=== PATIENT | male | born 1980 | race Caucasian/White ===

== ENCOUNTER 2020-01-20 15:30 | Emergency (ER) | payer BC ==
[~2020-01-20] VITALS: Ht 177.8 cm; Wt 88.6 kg
[2020-01-20 15:53] LABS: BASOPHILS # (AUTO) 0.2 X10'3 (0-0.2); BASOPHILS % (AUTO) 1.6 % (0-1); EOSINOPHILS # (AUTO) 0.5 X10'3 (0-0.9); EOSINOPHILS % (AUTO) 4.7 % (0-6); HEMATOCRIT 43.5 % (42.0-52.0); HEMOGLOBIN 14.9 g/dl (14.0-17.9); LYMPHOCYTES # (AUTO) 3.1 X10'3 (1.1-4.8); MEAN CORPUSCULAR HEMOGLOBIN 30.4 PG (27.0-31.0); MEAN CORPUSCULAR HGB CONC 34.4 g/dL (33.0-36.5); MEAN CORPUSCULAR VOLUME 88.6 FL (78-98); MEAN PLATELET VOLUME 8.1 FL (7.4-10.4); MONOCYTES # (AUTO) 0.8 X10'3 (0-0.9); MONOCYTES % (AUTO) 8.3 % (2-12); NEUTROPHILS # (AUTO) 5.4 X10'3 (1.8-7.7); NEUTROPHILS % (AUTO) 54.4 % (42-75); PLATELET COUNT 286 X10'3 (140-440); RED BLOOD COUNT 4.91 X10'6 (4.70-6.10); RED CELL DISTRIBUTION WIDTH 13.6 % (11.5-14.5); WHITE BLOOD COUNT 9.9 X10'3 (4.5-11.0)
[2020-01-20 16:08] LABS: ALANINE AMINOTRANSFERASE 33 U/L (12-78); ALBUMIN 3.8 G/DL (3.4-5.0); ALBUMIN/GLOBULIN RATIO 1.1 (1.1-1.5); ALKALINE PHOSPHATASE 82 IU/L (46-116); ANION GAP 6 (8-16); ASPARTATE AMINO TRANSFERASE 9 U/L (10-37); BILIRUBIN,TOTAL 0.3 MG/DL (0.1-1.0); BLOOD UREA NITROGEN 10 MG/DL (7-18); BUN/CREATININE RATIO 9.3 (5.4-32.0); CHLORIDE 107 MMOL/L (99-107); CREATININE 1.08 MG/DL (0.60-1.10); GLUCOSE 100 MG/DL (70-104); POTASSIUM 4.1 MMOL/L (3.5-5.1); SODIUM 140 MMOL/L (135-145); TOTAL CARBON DIOXIDE 27.1 MMOL/L (24-32); TOTAL PROTEIN 7.4 G/DL (6.4-8.2); eGFR 77 ML/MIN
[2020-01-20] MEDS ORDERED: aspirin 81mg tab.chew PO ONE (16:20)
[2020-01-20 17:05] LABS: D-DIMER 0.22 MG/L FEU (0-0.50)
[2020-01-20 19:21] VITALS: BP 128/85
== END 2020-01-20 19:39 | disposition home or self-care (01) ==
LOC: ER 15:31
DX: R07.89 Other chest pain (principal); R06.02 Shortness of breath; R42 Dizziness and giddiness; R00.2 Palpitations; Z88.0 Allergy status to penicillin
CPT/HCPCS: 36415; 71045; 80053; 83880; 84484; 85025; 85379; 93005; 99285

== ENCOUNTER 2025-03-17 12:29 | Inpatient (IN) | payer BC ==
[~2025-03-17] VITALS: Ht 172.7 cm; Wt 100.0 kg
--- NOTE | 2025-03-17 13:15 | Physician Documentation ---
History of Present Illness ~ Chief Complaint: ALOC Stated Complaint: ALOC Time Seen by MD: 12:40 OK to notify your PCP?: Yes Source: patient Mode of Arrival: Air Transport HPI A 44years old with urosepsis and ALOC in 2019 with unknown significant PMH who was transferred from the [facility] for further syncope workup. Pt seems like not having much interest in taking care of himself and mostly kept answering the most of medical history questions by replying "Just ask my " ( Salma [phone]), and " No Idea". Pt endorsed that he was told by his that he collapsed this morning which he had the similar episode in 2019 when he got urosepsis. As per [place]'s hospital record stating that his endorsed about the syncope episode last night. His Last Normal Time was around 830 last night. Denied for any fever with chills and rigors, N&V, flushing and sweating feeling, Chest pain pressure and discomfort, any aura, photosensitivity, neck stiffiness, or seizure like activity before and during the syncope. He denied for any recent head trauma or injury during his LOC. He was confused on awakening this morning noticed by his and unable to recognize his own daughter where they are residing together at home. On awakening from syncope, pt denied for any tongue bitting, urinary and bowel incontinence except for the confusion. He denied for any recent sick contact, and travelling history. 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 Medication Reconciliation Allergies: Coded Allergies: atorvastatin (Verified Allergy, Severe, 03/18/25) per patient has muscle contractions Penicillins (Unverified Allergy, Unknown, 03/17/25) Uncoded Allergies: DAIRY (Adverse Reaction, Unknown, 03/17/25) Scheduled Testosterone Cypionate (TESTOSTERONE CYPIONATE 200mg/ml 10ml vial), 1 ML IM Q7D, (Reported) Past Medical History Past Medical History: No Pertinent History Other Past Medical History: no known PMH except taking the testosterone supplement Past Surgical History: noncontributory Alcohol Use: None Drug Use: none Review of Systems All Other Systems at this time: Reviewed and Negative Physical Exam Vital Signs: Temperature: 97.6, Source: Temporal, Heart Rate: 83, Respiratory Rate: 16, BP: 141/101, Pulse Oximetry: 98, Weight: 100.000 Oxygen Flow Rate: 0 Physical Exam General: Well alert, well oriented, not confused, not agitated, not in acute distress, well cooperated during the physical. HEENT: Conjunctive are pink, sclerae clear, no icterus, pupil is equal in both sides, reactive to light, no ear discharge, no pharyngeal erythema or an edema, mouth and lips are moist. no nystagmus Neck: Supple, no JVD, no lymphadenopathy and thyromegaly. No neck stiffness Lungs:Equal air entry on both lungs, no additional sounds Heart: S1-S2 regular sinus rhythm and, regular rate, no gallops, no rubs, no murmurs Abdomen: No visible peristalsis, Bowel sounds present on auscultation, soft, nontender, no guarding, no rigidity Extremities: No obvious deformities, no pitting edema bilaterally, capillary refill intact, able to wiggle toes both sides, peripheral pulsations are intact on both sides DAG SPRAYER: No focal neurological deficits, no motor, power, and sensory weakness in all 4 extremities, could move all 4 extremities, no pronator drift, and No kernig and Barbinski signs bilaterally Musculoskeletal: No joint swelling, deformities, inflammations, and no scoliosis and back tenderness Skin: No active skin lesions and rashes Progress Results/Orders Results/Orders Vital Signs 03/17/25 03/17/25 03/17/25 03/17/25 12:29 12:33 12:45 13:05 Temp 97.6 97.6 Pulse 75 83 74 Resp 20 20 16 16 B/P (MAP) 141/10 141/101 (114) 141/101 (114) Pulse Ox 99 98 99 O2 Flow Rate 0 0 03/17/25 14:14 Pulse 74 Resp 16 B/P (MAP) 130/84 (99) Pulse Ox 99 O2 Flow Rate 0 Laboratory Tests Test 03/17/25 13:09 03/17/25 13:11 03/17/25 14:40 White Blood Count 8.4 Red Blood Count 5.14 Hemoglobin 15.3 Hematocrit 45.5 Mean Corpuscular Volume 88.5 Mean Corpuscular Hemoglobin 29.8 Mean Corpuscular Hemoglobin Concent 33.7 Red Cell Distribution Width 14.2 Platelet Count 231 Mean Platelet Volume 7.7 Neutrophils (%) (Auto) 58.7 Lymphocytes (%) (Auto) 30.9 Monocytes (%) (Auto) 6.6 Eosinophils (%) (Auto) 3.0 Basophils (%) (Auto) 0.8 Neutrophils # (Auto) 5.0 Lymphocytes # (Auto) 2.6 Monocytes # (Auto) 0.6 Eosinophils # (Auto) 0.3 Basophils # (Auto) 0.1 CBC Comment Prothrombin Time 10.9 INR International Normalized Ratio 1.1 Activated Partial Thromboplast Time 26 Coagulation Comments Sodium Level 143 Potassium Level 3.7 Chloride Level 111 H Carbon Dioxide Level 23.1 L Anion Gap 9 Blood Urea Nitrogen 19 H Creatinine 0.94 Estimated GFR/1.73 m2 88 BUN/Creatinine Ratio 20.2 H Glucose Level 123 H Hemoglobin A1c 6.7 H Lactic Acid Level 1.0 Calcium Level 8.1 L Phosphorus Level 2.5 Magnesium Level 2.1 Total Bilirubin 0.5 Aspartate Amino Transf (AST/SGOT) 12 Alanine Aminotransferase (ALT/SGPT) 33 Alkaline Phosphatase 65 Total Creatine Kinase 49 Pro-B-Type Natriuretic Peptide < 30 Total Protein 6.6 Albumin 3.4 Globulin 3.2 Albumin/Globulin Ratio 1.1 Procalcitonin < 0.05 Chemistry Comments Urine Specimen Description Non-specified Urine Color Yellow Urine Clarity Slightly cloudy Urine pH 7.5 Urine Specific [place] 1.010 Urine Protein Negative Urine Glucose (UA) Negative Urine Ketones Negative Urine Occult Blood Moderate H Urine Nitrite Negative Urine Bilirubin Negative Urine Urobilinogen 0.2 Urine Leukocyte Esterase Small H Urine RBC 3-10 Urine WBC 10-20 H Urine Squamous Epithelial Cells None seen Urine Bacteria 1+ Urine Culture Indicated Indicated Volume Urine Centrifuged 10 ml Urine Comment Ionized Calcium (Measured) 1.26 Medical Decision Making Additional information obtaine: family Findings A 44years old with urosepsis and ALOC in 2019 with unknown significant PMH who was transferred from the [facility] for further syncope workup. # Acute Encephalopathy -possibly from the Metabolic (Upper UTI/ complicated UTI) Vs toxic Vs Infectious Encephalopathy -To rule out the CVA or TIA with the extensive Syncope workup -vitals were stable except for the slightly high BP with no Fever -Ordered Basic labs and UA with C&S (prior [facility] showed Michelle Esterase + and 10-15 WBCs in UA) -CT abd imaging was done at the [facility] already. 1429: pt UA showed Small + Michelle Est, with 1+ Bact and large WBC and occult blood, Normal WBC and normal Procalcitonin, We started IV Ceftriaxone 2G one time in ER for the possible Male complicated UTI, The hospitalist team was paged to continue the further management including MRI and other Syncope workup. The hospitalist team ( Dr. Bains ) willingly accepted the patient to continue further care. Differential Dx:Considerations: Include: dehydration, encephalopathy, TIA, vasovagal Departure Time of Disposition: 14:31 Disposition: 09 ADMITTED INPATIENT Admitted to Inpatient Unit: to hospitalist Impression: Primary Impression: Altered mental status Additional Impression: Syncope and collapse Referrals: NO PRIMARY CARE PROVIDER (PCP) Additional Comment Seen with PA/CLOTH GRADER SUPERVISOR The patient presented with weakness and confusion and was transferred to our facility, the patient had no focal neurologic deficits. The patient was seen with the resident physician. I have reviewed the residence note and agree with the note and the assessment plan as written. I Have supervised all aspects of the residents care. I Independently examined the patient. The patient's prior hospitalizations were reviewed. The patients CT Imaging was reviewed. The patients pulse oximetry was interpreted as normal. And the patient's quality assurance monitor chassis was interpreted as a sinus rhythm. The patient will be admitted Signature Scribe Signature: No scribe Attestation: Resident MD attestation: Patient was seen, examined and discussed with ER attending MD, Dr. Regina COE MD Internal Medicine Resident, PGY3 [facility] The patient presented with weakness and confusion and was transferred to our facility, the patient had no focal neurologic deficits. The patient was seen with the resident physician. I have reviewed the residence note and agree with the note and the assessment plan as written. I Have supervised all aspects of the residents care. I Independently examined the patient. The patient's prior hospitalizations were reviewed. The patients CT Imaging was reviewed. The patients pulse oximetry was interpreted as normal. And the patient's quality assurance monitor chassis was interpreted as a sinus rhythm. The patient will be admitted MARIA LUZ COE RES Mar 17, 2025 13:15 APRIL AGUILAR MD Mar 19, 2025 09:18
[2025-03-17 13:21] LABS: MEAN PLATELET VOLUME 7.7 FL (7.4-10.4); RED CELL DISTRIBUTION WIDTH 14.2 % (11.5-14.5)
[2025-03-17 13:35] LABS: CREATININE 0.94 MG/DL (0.60-1.10); TOTAL CARBON DIOXIDE 23.1 MMOL/L (24-32); eCRCL 99 ML/MIN; eGFR 88 ML/MIN
[2025-03-17 13:39] LABS: LEUKOCYTE ESTERASE ,URINE SMALL (Neg); NITRITES, URINE NEGATIVE (Neg); OCCULT BLOOD,URINE MODERATE (Neg); UA COLLECTION TYPE NON-SPECIFIED
[2025-03-17 13:51] LABS: SQUAMOUS EPITHELIAL CELL,UR NONE SEEN /LPF (FEW)
[2025-03-17] MEDS: CefTRIAXone 2gm/D5W 50ml BAG 50 ML IV ONE (14:42)
[2025-03-17] MEDS ORDERED: ondansetron/PF 4mg/2ml inj IV PRN (15:35)
[2025-03-17] MEDS ORDERED: magnesium hydroxide 30ml (MOM) UD suspension PO PRN (15:35)
[2025-03-17] MEDS ORDERED: magnesium sulf-water 2g/50mL 50 ML IV PRN (15:35)
[2025-03-17] MEDS ORDERED: potassium Cl 20 mEq SR tablet PO PRN ×2 (15:35)
[2025-03-17] MEDS ORDERED: magnesium Cl slow-release 64mg tablet PO PRN (15:35)
[2025-03-17] MEDS ORDERED: potassium Cl 40MEQ/1/2NS 520ml 520 ML IV PRN (15:35)
[2025-03-17] MEDS ORDERED: magnesium sulf-water 4G/100mL 100 ML IV PRN (15:35)
[2025-03-17] MEDS ORDERED: mag hydrox/Alum hydrox/simeth 30ml oral suspension PO PRN (15:35)
[2025-03-17] MEDS: normal saline 1000ml 1,000 ML IV ONE (15:43)
[2025-03-17] MEDS: normal saline 1000ml 1,000 ML IV SCH (15:43)
[2025-03-17] MEDS ORDERED: TEST200V33 IM (15:52)
[2025-03-17 16:05] LABS: APTT 26 SECONDS (22-32); INR 1.1 INR
[2025-03-17 16:13] LABS: PHOSPHORUS 2.5 MG/DL (2.3-4.5); PRO BRAIN NATRIURETIC PEPTIDE < 30 PG/ML (0-125)
--- NOTE | 2025-03-17 19:03 | HISTORY AND PHYSICAL-Residence ---
History & Physical Providers to CC Resident Creating Document: LEAH BAINS, RES ~ History of Present Illness Primary Medical Doctor: Dr. Samuel Georges MD, [facility] regular health care clinic Reason for Admit\Complaint: Altered level of consciousness History of Present Illness Patient is a 44 years old male with history of Klinefelter's syndrome was transferred from [facility] for evaluation of altered level of consciousness. Patient's states that he was doing well and went to sleep yesterday night, Upon waking up this morning, patient was slightly confused and was unable to recognize his daughter. Patient tried to dress himself and had a subsequent mechanical fall, he did not strike his head on the floor or did not lose the consciousness. Later Patient's went to work, after sometime patient called his stating that he did not feel well and he was unsure whether he should go to work or not. Patient was not sure if he had heart attack or it was just his anxiety. He denied for any tongue biting, urinary and bowel incontinence. He denied for any recent sick contact, and travelling history. Denied for any fever with chills and rigors, N&V, flushing and sweating feeling, Chest pain/pressure and discomfort, any aura, photosensitivity, neck stiffness, or seizure like activity. Patient's also reported that patient had similar kind of episode in 2019 which was reported to be due to urosepsis. Patient takes testosterone injections weekly for the klinefelter's syndrome. ER course in the [facility]: Patient went to the ED at [facility] with chief complaints of altered level of consciousness and subsequent paralysis in both of his legs. He was confused and unable to answer some questions but he was able to follow commands. He was unable to lift his legs off the bed. He had in fact walked into the ER although unsteady on feet fully supporting his weight. Blood workup was unremarkable, CBC without leukocytosis or anemia. Metabolic panel was grossly benign except blood sugar was mildly elevated at 150. His procalcitonin was mildly elevated and lactic acid, TSH, troponin were all normal. His urine was contaminated but did not show any compelling signs of infection. His toxicology screen was negative. CT scan of the head was normal. CT angio head and neck was normal. Chest x-ray was normal. , the teleneurologist was consulted and she stated that this did not appear as typical stroke and he showed no signs of large vessel occlusion. She did recommend completion of encephalopathy workup with consideration for MRI and possible EEG. Patient had sudden recovery of his mentation and he was able to converse normally. He showed no signs of neurological deficits in the upper extremities and he was able to move his feet against resistance. Patient was transferred here for MRI and EEG for further workup. Allergies: Coded Allergies: Penicillins (Unverified Allergy, Unknown, 03/17/25) Uncoded Allergies: DAIRY (Adverse Reaction, Unknown, 03/17/25) Home Medications Home Medications Active Reported TESTOSTERONE CYPIONATE 200mg/ml 10ml vial (Testosterone Cypionate) 200 Mg/Ml Vial 1 Ml IM Q7D Past Medical History Past Medical History Klinefelter syndrome Tobacco use Chronic right shoulder pain History of urosepsis in 2019 Past Surgical History Surgical History Comment No surgical history Past Social History Social History Comment Smoking: Chews tobacco Alcohol: Drinks beer 1 or 2 times in a month Denies any recreational drug use Patient lives with family 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 Gastrointestinal:No Abdominal pain, vomiting,nausea and melena. Normal appetite. No constipation,diarrhea, hematemesis, Musculoskeletal: No swelling or edema of extremities. Integumentary: No change in skin, hair, nails. No swelling, bruising, abrasions Neurologic: No weakness,No headache, neck pain, numbness or tingling of the extremities, Psychiatric: No delusions, depression, loss of interest in normal activity or change in sleep pattern, hallucinations, suicidal ideations Endocrine: No fatigue, no weakness. polydipsia, polyuria, change in appetite, heat or cold intolerance, sweating, dry skin Hematological: No bleeding, petechiae, bruising Allergies: No asthma or urticaria Exam Vitals: Vital Signs Date Time Temp Pulse Resp B/P (MAP) Pulse Ox O2 Delivery O2 Flow Rate FiO2 03/17/25 18:05 84 16 141/94 (110) 94 0 03/17/25 12:45 97.6 General: Awake , alert and oriented to time,place, person,not in distress HEENT: Atraumatic, normocephalic, PERRLA, EOMI, anicteric sclera ; pink conjunctiva, dry mucos membranes Neck: Trachea midline. Supple, normal range of motion, no JVD, no lymphadenopathy Chest and Respiratory: Equal breath sounds bilaterally, no tachypnea, wheezing, ronchi,rubs .Chest wall is symmetric and without deformity. Cardiac: S1, S2 heard,Regular rate and rhythm, no murmurs ,no gallops, no rubs. Abdomen: Soft, No tenderness, No guarding or rigidity, Kearney's sign negative. normal bowel sounds x4 quadrant, no hepatosplenomegaly MSK: Range of motion of all extremities are normal. There is no joint pain or joint swelling or joint erythema. There is no muscle pain or tenderness or swelling. Extremities: warm, well-perfused, No cyanosis, clubbing, 2+ pulses felt, WRINKLE CHASER < 2 sec Neurological: Mental status exam: alert and consciousness, orientation, memory, speech - Cranial nerve test: Cranial nerves II-XII intact. - Motor system: Normal Nutrition, normal tone, Power 5/5, no involuntary movements - Sensory system: Intact - Reflex testing: Biceps, triceps and knee reflexes 2+ - Cerebellar: Normal Skin: Warm and dry Psychiatry: Affect and mood are normal Diagnostic Data Last Recorded Lab Results: 03/17/25 1309 03/17/25 1309 Diagnostic Data: Laboratory Tests Test 03/17/25 13:09 Prothrombin Time 10.9 SECONDS (9.0-12.0) INR International Normalized Ratio 1.1 INR Activated Partial Thromboplast Time 26 SECONDS (22-32) Coagulation Comments Advance Care Planning Advanced Care plannin - 30 Minutes (I spent a total of 17 minutes on reviewing various resuscitative measures/ACP with the patient at the time of admission. The patient has decided on full code status) Additional Plan Acute metabolic encephalopathy,resolving2/2 UTI UA positive for esterase, WBC and bacteria No leukocytosis, Lactate and procalcitonin are in normal limits Follow up on urine and blood cultures IV Rocephin 1 g daily Dehydration Pt has dry mucous membranes, WRINKLE CHASER < 2 sec IV NS 1L bolus was given and started on 100 ml IV NS Ordered orthostatic vitals Monitor BMP levels Possible CVA in evaluation vs TIA vs seizure disorder Imaging at [facility]: -CT head- no intracranial bleed -CTA angio shows no acute or significant vascular process In [facility]: MRI head shows no evidence of an acute infarction. EKG shows normal sinus rhythm and rate, normal axis with no acute ischemic changes Follow up on echocardiogram Follow up on EEG Teleneurology consult if necessary Telemetry monitoring Follow up on Urine Tox Klinefelter's syndrome Patient takes testosterone injections weekly. Patient takes Tylenol for occasional headaches Code status: Full code DVT prophylaxis : Lovenox Nutrition: Regular diet Physical therapy: ordered Line/tube: PIV Analgesia/sedation: Tylenol PRN Disposition: Continue telemetry monitoring and follow up with the MRI. Resident attestation The above note has been reviewed and supervised by a senior resident PGY2/PGY3 Patient was seen, examined and discussed with the attending physician, Dr. JUSTIN Bains MD Internal Medicine Resident, PGY 1 Date of Service: Mar 17, 2025 Billing Provider: MIMI ANDERSON MD, SUNIL KUMAR, RES Mar 17, 2025 19:03
[2025-03-17] MEDS: docusate sod 100mg capsule PO SCH (19:39)
[2025-03-17] MEDS: K and/or MAG REPLACEMENT MC SCH (19:48)
[2025-03-17 20:00] VITALS: BP_SYST 138; BP_SYST 145; BP_SYST 154; BP_DIAS 93; BP_DIAS 97; PULSE 122; PULSE 131; PULSE 70
[2025-03-17 21:12] VITALS: BP 147/89; PULSE 68; RESP 16; TEMP 97.9; O2SAT 98
--- NOTE | 2025-03-17 21:37 | RADIOLOGY REPORT ---
EXAM: MR MRI HEAD INDICATION: CVA/occlusion TECHNIQUE: Multiplanar, multisequence imaging of the brain without contrast. COMPARISON: None FINDINGS: [PARENCHYMA]: No acute infarct or hemorrhage. No mass effect or herniation. No abnormal susceptibility weighted artifact. [VENTRICLES]: No hydrocephalus. [EXTRA-AXIAL SPACES]: No extra-axial fluid collections. [FLOW VOIDS]: The flow voids are intact. [EXTRA-CRANIAL STRUCTURES]: The bony structures are intact. Visualized portions of the paranasal sinuses and mastoid air cells are essentially clear. IMPRESSION: 1. No MR evidence of an acute infarction.
[2025-03-17] MEDS: enoxaparin 40mg/0.4ml syringe SQ SCH (21:40)
[2025-03-18 02:00] VITALS: BP 129/75; PULSE 80; RESP 16; TEMP 97.9; O2SAT 98
[2025-03-18 06:20] LABS: MEAN PLATELET VOLUME 8.0 FL (7.4-10.4); RED CELL DISTRIBUTION WIDTH 14.0 % (11.5-14.5)
[2025-03-18 06:53] LABS: CHOL/HDL RATIO 3.8 (0.00-4.99); CREATININE 0.98 MG/DL (0.60-1.10); LDL CHOLESTEROL 94 MG/DL (50-100); TOTAL CARBON DIOXIDE 25.3 MMOL/L (24-32); eCRCL 95 ML/MIN; eGFR 84 ML/MIN
[2025-03-18 08:00] VITALS: BP_SYST 125; BP_SYST 131; BP_SYST 135; BP_SYST 140; BP_DIAS 82; BP_DIAS 84; BP_DIAS 87; BP_DIAS 99; PULSE 65; PULSE 70; PULSE 87; PULSE 91; RESP 14; TEMP 98.6; O2SAT 99
[2025-03-18] MEDS: CefTRIAXone/D5W-Rocephin 1gm 50 ML IV SCH (08:31)
[2025-03-18] MEDS: nicotine 21mg patch - 24 hr TD SCH (10:00)
[2025-03-18] MEDS ORDERED: glucagon, human recombinant 1mg kit SUBCUT PRN ×2 (11:00→11:10)
[2025-03-18] MEDS ORDERED: dextrose 50%-water 50ml dispensing syringe IV PRN ×4 (11:00→11:10)
[2025-03-18] MEDS ORDERED: DEXTROSE 15 GM of carb/4 tabs (each vial/BOTTLE has 4 tablets) PO PRN ×4 (11:00→11:10)
[2025-03-18 11:05] LABS: LEUKOCYTE ESTERASE ,URINE TRACE (Neg); NITRITES, URINE NEGATIVE (Neg); OCCULT BLOOD,URINE TRACE-INTACT (Neg)
[2025-03-18] MEDS ORDERED: aspirin 81mg, enteric-coated 1 TAB TABLET.DR PO SCH (11:10)
[2025-03-18 11:19] LABS: UA COLLECTION TYPE NON-SPECIFIED; URINE AMPHETAMINE SCREEN NEGATIVE (Neg); URINE BARBITUATE SCREEN NEGATIVE (Neg); URINE BENZODIAZEPINES SCREEN NEGATIVE (Neg); URINE CANNABINOID SCREEN NEGATIVE (Neg); URINE COCAINE SCREEN NEGATIVE (Neg); URINE METHADONE SCREEN NEGATIVE (Neg); URINE OPIATE SCREEN NEGATIVE (Neg); URINE PHENCYCLIDINE SCREEN NEGATIVE (Neg)
[2025-03-18 11:20] LABS: AMORPHOUS PHOSPHATES 2+; SQUAMOUS EPITHELIAL CELL,UR FEW /LPF (FEW)
[2025-03-18] MEDS: INSULIN LISPRO 100 UNIT/ML INSULN.PEN MULTI-DOSE SQ SCH ×2 (12:00)
[2025-03-18] MEDS: lactobacillus rhamnosus 10,000 MMU CELLS/CAPSULE PO SCH (13:00)
--- NOTE | 2025-03-18 13:15 | [facility] CONSULT REPORT ---
[facility] Procedure Note [facility] Procedure Note Consult [facility] Note # Demographics Consult Type: General Neurology Patient Location: Inpatient First Name: REAGAN Last Name: NENA Gilbert Date of : 1980 Age: 44 Gender: Male Facility: [facility] Time of Initial Page (): 03/18/2025 12:43 First Contact with Site (): 03/18/2025 12:44 # HPI History: Patient is a 44 years old male with history of Klinefelter's syndrome was transferred from [facility] for evaluation of altered level of consciousness. Patient's states that he was doing well and went to sleep yesterday night, Upon waking up this morning, patient was slightly confused and was unable to recognize his daughter. Patient tried to dress himself and had a subsequent mechanical fall, he did not strike his head on the floor or did not lose the consciousness. Later Patient's went to work, after sometime patient called his stating that he did not feel well and he was unsure whether he should go to work or not. Denied for any fever with chills and rigors, N&V, flushing and sweating feeling, Chest pain/pressure and discomfort, any aura, photosensitivity, neck stiffness, or seizure like activity. Patient's also reported that patient had similar kind of episode in 2019 which was reported to be due to urosepsis. Patient takes testosterone injections weekly for the klinefelter's syndrome. CT scan of the head was normal. CT angio head and neck was normal. Chest x-ray was normal. , the teleneurologist was consulted and she stated that this did not appear as typical stroke and he showed no signs of large vessel occlusion. She did recommend completion of encephalopathy workup with consideration for MRI and possible EEG. Patient had sudden recovery of his mentation and he was able to converse normally. He showed no signs of neurological deficits in the upper extremities and he was able to move his feet against resistance. Patient was transferred here for MRI and EEG for further workup. Imaging at [facility]: -CT head- no intracranial bleed -CTA angio shows no acute or significant vascular process In [facility]: MRI head shows no evidence of an acute infarction. EKG shows normal sinus rhythm and rate, normal axis with no acute ischemic changes. Assessment: Possible TIA Appreciate your recommendations on this patient. we started the patient on aspirin 81 mg and rosuvastatin . # Assessment Impression: - Altered Mental Status EEG pending for encephalopathy workup. No stroke syndrome was reported. Imaging has been reassuring. Toxometabolic workup recommended. # Plan Labs: - Ammonia - B12 - thiamine - TSH - urine drug screen - ua Diagnostic Test: - EEG Other: - If patient has any neurological deterioration please call me back immediately - I have discussed my recommendations with the referring provider # Logistics Attestation of consult completion: The patient is located at: [facility]. I performed this phone consultation from my offsite office Total time spent in telemedicine encounter: I spent 5 minutes in reviewing clinical data and/or imaging, obtaining history, communicating with the onsite care team, and in preparation of this report. # Demographics First Name: REAGAN Last Name: NENA Vladimir Facility: [facility] Electronically signed at 03/18/2025 13:15 ([place] Time) by MD NISHI Kolb ZACHARY I MD Mar 18, 2025 13:15
--- NOTE | 2025-03-18 17:19 | CARDIOLOGY REPORT ---
APPROVED REPORT EXAM: Comprehensive 2D, Doppler, and color-flow Echocardiogram. Patient Location: ER 6 Blood Pressure: 141 / 94 mmHg Heart Rate: 73 bpm Rhythm: SINUS Indications ARRHYTHMIA SYNCOPAL EPISODE [place]: NONE Previous echo: NONE 2D Dimensions RVDd 3.5 cm LVOT Diameter 2.06 (1.8-2.4cm) CO 3.6 L/min M-Mode Dimensions Left Atrium(MM) 4.08 (2.5-4.0cm) IVSd 0.96 (0.7-1.1cm) LVDd 4.08 (4.0-5.6cm) Aortic Root 3.05 (2.2-3.7cm) PWd 1.00 (0.7-1.1cm) Aortic Cusp Exc 2.14 (1.5-2.0cm) IVSs 1.37 cm MV EPSS 0.5 (<0.5cm) LVDs 2.64 (2.0-3.8cm) FS (%) 35 % PWs 1.48 cm ESV(Teich) 25.6 ml LVEF(%) 65 (>50%) Aortic Valve AoV Peak Ham. 149.8 cm/s AoV VTI 28.6 cm AO Peak GR. 9.0 mmHg AO Mean GR. 5 mmHg LVOT VTI 20.51 cm LVOT Peak Ham. 117.8 cm/s TAINA(VTI)/BSA 2.39 cm2/m2 TAINA (VTI) 2.39 cm2 AV DI 0.72 % Mitral Valve MV E Velocity 99.6 cm/s MV Peak Gr. 3 mmHg MV DECEL TIME 212 ms MV A Velocity 95.0 cm/s MV PHT 48 ms E/A Ratio 1.0 MVA (PHT) 4.58 cm2 MV VMax 91.2 cm/s Tricuspid Valve TR P. Velocity 273 cm/s RAP ESTIMATE 10 mmHg TR Peak Gr. 30 mmHg RVSP 40 mmHg Pulmonary Vein S1 Velocity 52.3 cm/s D2 Velocity 44.1 cm/s PVa Velocity 22.8 cm/s PVa Duration 152 msec LEFT VENTRICLE Normal LV size and wall thickness. Overall systolic function is normal. LVEF is 60-65%. RIGHT VENTRICLE RV is mildly increased in size with normal function. ( best visualized apically. Elevated right heart pressures with an RVSP of 40 mmHg. ATRIA The left atrium size is normal. AORTIC VALVE Trileaflet AV appears normal without stenosis or insufficiency. MITRAL VALVE Normal MV annular calcification without stenosis. Trivial regurgitation. TRICUSPID VALVE TV appears structurally normal with trace regurgitation. PULMONIC VALVE Normal PV without stenosis, physiologic insufficiency. GREAT VESSELS Aortic root is normal in size. Normal appearing arch with normal flow velocities. Ascending aorta is normal in size. PERICARDIUM Normal pericardium. No effusion. Other Information Study Quality: Adequate Conclusion Normal LV size and wall thickness. Overall systolic function is normal. LVEF is 60-65%. RV is mildly increased in size with normal function. ( best visualized apically. Elevated right heart pressures with an RVSP of 40 mmHg. The left atrium size is normal. Trileaflet AV appears normal without stenosis or insufficiency. Normal MV annular calcification without stenosis. Trivial regurgitation. TV appears structurally normal with trace regurgitation. Normal pericardium. No effusion.
[2025-03-18 18:30] VITALS: BP 140/89; PULSE 69; RESP 18; TEMP 98.2; O2SAT 99
[2025-03-18] MEDS: insulin glargine (Lantus) pen - multi-dose SQ SCH (19:20)
--- NOTE | 2025-03-18 19:47 | PROGRESS NOTE- Residence ---
Progress Note - Resident Providers to CC Resident Creating Document: LEAH NAVARRO, RES ~ Ramsay-Non Protocol Ramsay Indications Met/Not Met: F/C Indications Not Met Antibiotic Timeout Antibiotic Ordered?: Yes Subjective Patient was seen and examined at bedside. Patient denies any fever, chills, nausea, vomiting, burning sensation in urine, urgency and frequency. Patient denies any weakness/ tingling or numbness sensation in upper and lower extremities. Patient denies any other concerns or complaints at the moment. Objective Vital Signs Date Time Temp Pulse Resp B/P (MAP) Pulse Ox O2 Delivery O2 Flow Rate FiO2 03/18/25 08:00 Room Air 0.0 03/18/25 08:00 65 131/82 (98) 87 140/84 (102) 91 135/99 (111) 03/18/25 08:00 98.6 14 99 Result Diagram: 03/18/25 0545 03/18/25 0545 Awake , alert and oriented to time,place, person,not in distress HEENT: Atraumatic, normocephalic, PERRLA, EOMI, anicteric sclera ; pink conjunctiva, moist mucos membranes Neck: Trachea midline. Supple, normal range of motion, no JVD, no lymphadenopathy Chest and Respiratory: Equal breath sounds bilaterally, no tachypnea, wheezing, ronchi,rubs .Chest wall is symmetric and without deformity. Cardiac: S1, S2 heard,Regular rate and rhythm, no murmurs ,no gallops, no rubs. Abdomen: Soft, No tenderness, No guarding or rigidity, Kearney's sign negative. normal bowel sounds x4 quadrant, no hepatosplenomegaly MSK: Range of motion of all extremities are normal. There is no joint pain or joint swelling or joint erythema. There is no muscle pain or tenderness or swelling. Extremities: warm, well-perfused, No cyanosis, clubbing, 2+ pulses felt Neurological: Mental status exam: alert and consciousness, orientation, memory, speech - Cranial nerve test: Cranial nerves II-XII intact. - Motor system: Normal Nutrition, normal tone, Power 5/5, no involuntary movements - Sensory system: Intact - Reflex testing: Biceps, triceps and knee reflexes 2+ - Cerebellar: Normal Skin: Warm and dry Psychiatry: Affect and mood are normal Coagulation Studies Laboratory Tests Test 03/17/25 13:09 Prothrombin Time 10.9 SECONDS (9.0-12.0) INR International Normalized Ratio 1.1 INR Activated Partial Thromboplast Time 26 SECONDS (22-32) Coagulation Comments Plan Plan Acute metabolic encephalopathy,resolving 2/2 UTI UA positive for esterase, WBC and bacteria No leukocytosis, Lactate and procalcitonin are in normal limits Preliminary urine culture shows no growth IV Rocephin 1 g, day 2 Dehydration, resolved Pt has dry mucous membranes, TE[employer] < 2 sec IV NS 1L bolus was given in the ER orthostatic vitals are negative Discontinued IV fluids Monitor BMP levels Possible TIA Telemetry shows normal sinus rhythm Imaging at [facility]: -CT head- no intracranial bleed -CTA angio shows no acute or significant vascular process In [facility]: MRI head shows no evidence of an acute infarction. EKG shows normal sinus rhythm and rate, normal axis with no acute ischemic changes echocardiogram shows EF of 65% the no wall motion abnormalities Urine toxicology is negative TSH is 3.24 TeleNeurology recommended ammonia, B12, thiamine,EEG EEG pending Teleneurology consulted (did not mention anything about DAPT in notes, I spoke to the teleneurology on phone, advised no DAPT treatment on this patient verbally on phone ) Newly diagnosed type 2 diabetes HbA1c is 6.7 Started on hyperglycemia/hypoglycemia protocol Patient refused Accu-Cheks and low-dose insulin protocol. Risks and complications of diabetes/hyperglycemia was explained to the patient. Patient LDL is 95 and refused statin medication. Risks and complications was explained to the patient. Klinefelter's syndrome Patient takes testosterone injections weekly. Patient takes Tylenol for occasional headaches Code status: Full code DVT prophylaxis : Lovenox Nutrition: Regular diet Physical therapy: Yes Line/tube: PIV Analgesia/sedation: Tylenol PRN Disposition: Continue telemetry monitoring and follow up on EEG . Date of Service: Mar 18, 2025 Billing Provider: MIMI ANDERSON MD, SUNIL KUMAR, RES Mar 18, 2025 19:47
[2025-03-18 20:00] VITALS: BP_SYST 123; BP_SYST 124; BP_SYST 136; BP_DIAS 80; BP_DIAS 85; PULSE 74; PULSE 76; PULSE 83
--- NOTE | 2025-03-18 21:53 | [facility] CONSULT REPORT ---
[facility] Procedure Note [facility] Procedure Note Consult [facility] Note # Demographics Type of EEG Read: - Routine EEG - video Patient Location: Inpatient First Name: Joey Last Name: Silvino Date of : 1980 Age: 44 Gender: Male Facility: [facility] Time of Initial Page (): 03/18/2025 15:12 First Contact with Site (): 03/18/2025 15:13 # EEG Interpretation Start Time of EEG Read (): 03/18/2025 15:27 Stop Time of EEG Read (): 03/18/2025 15:59 Duration: 0h 32m Technical Details: - The EEG electrodes were placed using the standard International 10-20 system of electrode placement. Video and an accessory EKG lead were used during the course of this study. - This study was recorded using the [employer] EEG software Indication: - altered mental status - syncope - abnormal movements # Description Phases Captured: - awake - drowsy - sleep Predominant Frequencies: During wakefulness, the background activity demonstrates a well-formed, symmetric posterior dominant rhythm (PDR) in the alpha frequency range (typically 810 Hz), maximal over the occipital regions, with appropriate attenuation upon eye opening and reappearance with eye closure. The anterior-posterior gradient is preserved, and no abnormal asymmetries or focal slowing are identified. During drowsiness (Stage I sleep), there is a gradual attenuation of the alpha rhythm, replaced by low-amplitude mixed-sofia quency theta activity, along with the appearance of vertex sharp transients and slow eye movements. Stage II sleep was not captured. The background remains symmetric and reactive throughout the recording, with no focal abnormalities or generalized slowing noted during any state. Amplitude: normal Reactivity: yes Variability: yes Continuity: continuous EKG: NSR # Abnormalities Epileptiform Abnormalities: - NOT present Seizure: - NOT present Artifact: muscle and movement # Impression Impression: normal # Clinical Correlation Clinical Correlation: A normal EEG does not exclude nor support the diagnosis of epilepsy. Additional Comments: Clinical correlation is recommended. # Logistics Telemedicine: remote EEG review: EEG reviewed remotely # Demographics First Name: Joey Last Name: Silvino Facility: [facility] Neuro Consult Order placed for: Yes MANUEL CASTANEDA MD Mar 18, 2025 21:53
[2025-03-18 22:00] VITALS: BP 147/86; PULSE 76; RESP 13; TEMP 97.6; O2SAT 98
[2025-03-19 05:58] LABS: MEAN PLATELET VOLUME 7.6 FL (7.4-10.4); RED CELL DISTRIBUTION WIDTH 13.9 % (11.5-14.5)
[2025-03-19 06:00] VITALS: BP 135/88; PULSE 76; RESP 12; TEMP 97.8; O2SAT 99
[2025-03-19 06:11] LABS: CREATININE 1.03 MG/DL (0.60-1.10); TOTAL CARBON DIOXIDE 28.7 MMOL/L (24-32); eCRCL 90 ML/MIN; eGFR 79 ML/MIN
[2025-03-19 08:00] VITALS: BP 135/88; PULSE 76; RESP 12; TEMP 97.8; O2SAT 99
[2025-03-19 10:00] VITALS: BP 124/87; PULSE 68; RESP 16; TEMP 98.2; O2SAT 99
[2025-03-19] MEDS ORDERED: CEFD300C3 PO (10:37)
--- NOTE | 2025-03-19 11:14 | DISCHARGE SUMMARY-Residence ---
Discharge Summary Providers to CC Resident Creating Document: LEAH NAVAROR EMMA, RES ~ Discharge Summary Admission Diagnosis: Syncope Hospital Course DATE OF ADMISSION: 03/17/25 DATE OF DISCHARGE: 03/19/25 Discharge Diagnosis\Comment: Acute metabolic encephalopathy,resolved UTI Newly diagnosed type 2 diabetes Dehydration TIA, CVA, Seizure disorder ruled out Klinefelter's syndrome Operations\Procedures: None Consultants: Tele neurology Complications: None Condition on DC: Stable New Medications: Cefdinir* (Cefdinir*) 300 Mg Capsule 1 CAP PO Q12H for 4 Days, #8 CAP Continued Medications: Testosterone Cypionate (TESTOSTERONE CYPIONATE 200mg/ml 10ml vial) 200 Mg/Ml Vial 1 ML IM Q7D Discharge Summary: History of Present Illness : Patient is a 44 years old male with history of Klinefelter's syndrome was transferred from [facility] for evaluation of altered level of consciousness. Patient's states that he was doing well and went to sleep yesterday night, Upon waking up this morning, patient was slightly confused and was unable to recognize his daughter. Patient tried to dress himself and had a subsequent mechanical fall, he did not strike his head on the floor or did not lose the consciousness. Later Patient's went to work, after sometime patient called his stating that he did not feel well and he was unsure whether he should go to work or not. Patient was not sure if he had heart attack or it was just his anxiety. He denied for any tongue biting, urinary and bowel incontinence. He denied for any recent sick contact, and travelling history. Denied for any fever with chills and rigors, N&V, flushing and sweating feeling, Chest pain/pressure and discomfort, any aura, photosensitivity, neck stiffness, or seizure like activity.Patient's also reported that patient had similar kind of episode in 2019 which was reported to be due to urosepsis. Patient takes testosterone injections weekly for the klinefelter's syndrome. ER course in the [facility]: Patient went to the ED at [place] with chief complaints of altered level of consciousness and subsequent paralysis in both of his legs. He was confused and unable to answer some questions but he was able to follow commands. He was unable to lift his legs off the bed. He had in fact walked into the ER although unsteady on feet fully supporting his weight. Blood workup was unremarkable, CBC without leukocytosis or anemia. Metabolic panel was grossly benign except blood sugar was mildly elevated at 150. His procalcitonin was mildly elevated and lactic acid, TSH, troponin were all normal. His urine was contaminated but did not show any compelling signs of infection. His toxicology screen was negative. CT scan of the head was normal. CT angio head and neck was normal. Chest x-ray was normal. , the teleneurologist was consulted and she stated that this did not appear as typical stroke and he showed no signs of large vessel occlusion. She did recommend completion of encephalopathy workup with consideration for MRI and possible EEG. Patient had sudden recovery of his mentation and he was able to converse normally. He showed no signs of neurological deficits in the upper extremities and he was able to move his feet against resistance. Patient was transferred here for MRI and EEG for further workup. Course in the Hospital: Patient was admitted for altered level of consciousness evaluation. Urinalysis is positive for UTI and urine cultures are negative. Patient was treated with IV Rocephin and hydration with oral and IV fluids. Patient was evaluated for possible TIA versus seizure disorder. CTA head, CTA angio head and neck, MRI, EEG, EKG, urine toxicology, ammonia level were normal. Tele neurology was consulted and ruled out TIA and seizure disorder. Patient was diagnosed with type 2 diabetes and advised antidiabetic medications. Patient refused treatment for diabetes, risks and complications are explained to the patient. Patient LDL was 95 and refused statin medication. Care plan discussed patient who is awake alert, all questions answered and all concerns addressed appropriately. All labs, diagnostic workup and discharge plan discussed with patient and in detail before discharge.Discharge instructions provided to the patient. Patient needs follow-up with primary care physician after hospital discharge in 1 week. Discharge instructions: Advise to follow up with PCP after 1 week. 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 Oral Cefadinir 300 mg for next 4 days. Physical exam at discharge: Awake , alert and oriented to time,place, person,not in distress HEENT: Atraumatic, normocephalic, PERRLA, EOMI, anicteric sclera ; pink co njunctiva, moist mucos membranes Neck: Trachea midline. Supple, normal range of motion, no JVD, no lymphadenopathy Chest and Respiratory: Equal breath sounds bilaterally, no tachypnea, wheezing, ronchi,rubs .Chest wall is symmetric and without deformity. Cardiac: S1, S2 heard,Regular rate and rhythm, no murmurs ,no gallops, no rubs. Abdomen: Soft, No tenderness, No guarding or rigidity, Kearney's sign negative. normal bowel sounds x4 quadrant, no hepatosplenomegaly MSK: Range of motion of all extremities are normal. There is no joint pain or joint swelling or joint erythema. There is no muscle pain or tenderness or swelling. Extremities: warm, well-perfused, No cyanosis, clubbing, 2+ pulses felt Neurological: Mental status exam: alert and consciousness, orientation, memory, speech - Cranial nerve test: Cranial nerves II-XII intact. - Motor system: Normal Nutrition, normal tone, Power 5/5, no involuntary movements - Sensory system: Intact - Reflex testing: Biceps, triceps and knee reflexes 2+ - Cerebellar: Normal Skin: Warm and dry Psychiatry: Affect and mood are normal Vital Signs Date Time Temp Pulse Resp B/P (MAP) Pulse Ox O2 Delivery O2 Flow Rate FiO2 03/19/25 08:00 12 99 Room Air 03/19/25 08:00 97.8 76 135/88 (104) 03/18/25 20:00 0.0 Laboratory Tests Test 03/17/25 13:09 03/17/25 13:11 03/17/25 14:40 03/17/25 18:30 White Blood Count 8.4 X10'3 Red Blood Count 5.14 X10'6 Hemoglobin 15.3 g/dl Hematocrit 45.5 % Mean Corpuscular Volume 88.5 FL Mean Corpuscular Hemoglobin 29.8 PG Mean Corpuscular Hemoglobin Concent 33.7 g/dL Red Cell Distribution Width 14.2 % Platelet Count 231 X10'3 Mean Platelet Volume 7.7 FL Neutrophils (%) (Auto) 58.7 % Lymphocytes (%) (Auto) 30.9 % Monocytes (%) (Auto) 6.6 % Eosinophils (%) (Auto) 3.0 % Basophils (%) (Auto) 0.8 % Neutrophils # (Auto) 5.0 X10'3 Lymphocytes # (Auto) 2.6 X10'3 Monocytes # (Auto) 0.6 X10'3 Eosinophils # (Auto) 0.3 X10'3 Basophils # (Auto) 0.1 X10'3 CBC Comment Prothrombin Time 10.9 SECONDS INR International Normalized Ratio 1.1 INR Activated Partial Thromboplast Time 26 SECONDS Coagulation Comments Sodium Level 143 MMOL/L Potassium Level 3.7 MMOL/L Chloride Level 111 MMOL/L Carbon Dioxide Level 23.1 MMOL/L Anion Gap 9 Blood Urea Nitrogen 19 MG/DL Creatinine 0.94 MG/DL Estimated GFR/1.73 m2 88 ML/MIN BUN/Creatinine Ratio 20.2 Glucose Level 123 MG/DL Hemoglobin A1c 6.7 % Lactic Acid Level 1.0 MMOL/L Calcium Level 8.1 MG/DL Phosphorus Level 2.5 MG/DL Magnesium Level 2.1 MG/DL Total Bilirubin 0.5 MG/DL Aspartate Amino Transf (AST/SGOT) 12 U/L Alanine Aminotransferase (ALT/SGPT) 33 U/L Alkaline Phosphatase 65 IU/L Total Creatine Kinase 49 U/L Pro-B-Type Natriuretic Peptide < 30 PG/ML Total Protein 6.6 G/DL Albumin 3.4 G/DL Globulin 3.2 G/DL Albumin/Globulin Ratio 1.1 Procalcitonin < 0.05 NG/ML Chemistry Comments Urine Specimen Description Non-specified Urine Color Yellow Urine Clarity Slightly cloudy Urine pH 7.5 Urine Specific Diana 1.010 Urine Protein Negative mg/dl Urine Glucose (UA) Negative mg/dl Urine Ketones Negative mg/dl Urine Occult Blood Moderate Urine Nitrite Negative Urine Bilirubin Negative Urine Urobilinogen 0.2 E.U/dL Urine Leukocyte Esterase Small Urine RBC 3-10 /HPF Urine WBC 10-20 /HPF Urine Squamous Epithelial Cells None seen /LPF Urine Bacteria 1+ /HPF Urine Culture Indicated Indicated Volume Urine Centrifuged 10 ml Urine Comment Ionized Calcium (Measured) 1.26 MMOL/L Troponin I High Sensitivity 5 ng/L Test 03/17/25 20:09 03/18/25 05:45 03/18/25 10:30 03/18/25 20:28 Troponin I High Sensitivity 4 ng/L Troponin I High Sens Percent Delta 20 % Troponin I Hi Sens Absolute Change -1 ng/L White Blood Count 8.3 X10'3 Red Blood Count 5.20 X10'6 Hemoglobin 15.8 g/dl Hematocrit 46.0 % Mean Corpuscular Volume 88.5 FL Mean Corpuscular Hemoglobin 30.4 PG Mean Corpuscular Hemoglobin Concent 34.3 g/dL Red Cell Distribution Width 14.0 % Platelet Count 242 X10'3 Mean Platelet Volume 8.0 FL Neutrophils (%) (Auto) 52.6 % Lymphocytes (%) (Auto) 34.3 % Monocytes (%) (Auto) 7.1 % Eosinophils (%) (Auto) 5.0 % Basophils (%) (Auto) 1.0 % Neutrophils # (Auto) 4.3 X10'3 Lymphocytes # (Auto) 2.8 X10'3 Monocytes # (Auto) 0.6 X10'3 Eosinophils # (Auto) 0.4 X10'3 Basophils # (Auto) 0.1 X10'3 CBC Comment Sodium Level 141 MMOL/L Potassium Level 4.2 MMOL/L Chloride Level 109 MMOL/L Carbon Dioxide Level 25.3 MMOL/L Anion Gap 7 Blood Urea Nitrogen 19 MG/DL Creatinine 0.98 MG/DL Estimated GFR/1.73 m2 84 ML/MIN BUN/Creatinine Ratio 19.4 Glucose Level 149 MG/DL Calcium Level 8.1 MG/DL Albumin 3.5 G/DL Triglycerides Level 144 MG/DL Cholesterol Level 150 MG/DL LDL Cholesterol 94 MG/DL HDL Cholesterol 40 MG/DL Cholesterol/HDL Ratio 3.8 Thyroid Stimulating Hormone (TSH) 3.24 ulU/ml Chemistry Comments Urine Specimen Description Non-specified Urine Color Yellow Urine Clarity Slightly cloudy Urine pH 8.5 Urine Specific Diana 1.015 Urine Protein Negative mg/dl Urine Glucose (UA) Negative mg/dl Urine Ketones Negative mg/dl Urine Occult Blood Trace-intact Urine Nitrite Negative Urine Bilirubin Negative Urine Urobilinogen 0.2 E.U/dL Urine Leukocyte Esterase Trace Urine RBC 0-2 /HPF Urine WBC 30-50 /HPF Urine Squamous Epithelial Cells Few /LPF Urine Amorphous Phosphates 2+ Urine Bacteria 2+ /HPF Urine Culture Indicated Indicated Volume Urine Centrifuged 10 ml Urine Comment Urine Opiates Screen Negative Urine Methadone Screen Negative Urine Fentanyl Screen Negative Urine Barbiturates Screen Negative Urine Phencyclidine Screen Negative Urine Amphetamines Screen Negative Urine Benzodiazepines Screen Negative Urine Cocaine Screen Negative Urine Cannabinoids Screen Negative Drug Screen Comment Ammonia 15 UMOL/L Test 03/19/25 05:38 03/19/25 08:49 White Blood Count 6.9 X10'3 Red Blood Count 5.05 X10'6 Hemoglobin 15.3 g/dl Hematocrit 44.7 % Mean Corpuscular Volume 88.6 FL Mean Corpuscular Hemoglobin 30.3 PG Mean Corpuscular Hemoglobin Concent 34.2 g/dL Red Cell Distribution Width 13.9 % Platelet Count 225 X10'3 Mean Platelet Volume 7.6 FL Neutrophils (%) (Auto) 50.5 % Lymphocytes (%) (Auto) 34.9 % Monocytes (%) (Auto) 8.1 % Eosinophils (%) (Auto) 5.4 % Basophils (%) (Auto) 1.1 % Neutrophils # (Auto) 3.5 X10'3 Lymphocytes # (Auto) 2.4 X10'3 Monocytes # (Auto) 0.6 X10'3 Eosinophils # (Auto) 0.4 X10'3 Basophils # (Auto) 0.1 X10'3 CBC Comment Sodium Level 141 MMOL/L Potassium Level 4.0 MMOL/L Chloride Level 107 MMOL/L Carbon Dioxide Level 28.7 MMOL/L Anion Gap 5 Blood Urea Nitrogen 14 MG/DL Creatinine 1.03 MG/DL Estimated GFR/1.73 m2 79 ML/MIN BUN/Creatinine Ratio 13.6 Glucose Level 142 MG/DL Calcium Level 8.5 MG/DL Albumin 3.6 G/DL Chemistry Comments *Problems/Diagnosis: (1) Metabolic encephalopathy (2) UTI (urinary tract infection) (3) Dehydration (4) Diabetes mellitus Total Time Spent on D/C: > 30 Minutes Counseling Services Smoking & Tobacco Cessation: > 10 Minutes Date of Service: Mar 19, 2025 Billing Provider: MIMI ANDERSON MD, SUNIL KUMAR, RES Mar 19, 2025 11:13
[2025-03-20] MEDS ORDERED: nicotine 21mg patch - 24 hr TD SCH (08:00)
== END 2025-03-19 11:35 | disposition home or self-care (01) | DRG 689 ==
LOC: ER 12:29 → ED HOLD 14:44 → ORTHO 4S 20:30
PROVIDERS: ADMIT Family Medicine; ATTEND Family Medicine
PROC: 4A00X4Z Measurement of Central Nervous Electrical Activity, External Approach (ICD-10-PCS; principal; 2025-03-18)
DX: N39.0 Urinary tract infection, site not specified (principal); G93.41 Metabolic encephalopathy; E11.9 Type 2 diabetes mellitus without complications; Q98.4 Klinefelter syndrome, unspecified; E86.0 Dehydration; Z88.0 Allergy status to penicillin; Z88.8 Allergy status to other drugs, medicaments and biological substances
CPT/HCPCS: 36415; 70551; 80048; 80053; 80061; 80305; 81001; 82140; 82330; 82550; 82607; 83036; 83605; 83735; 83880; 84100; 84145; 84425; 84443; 84484; 85025; 85610; 85730; 87081; 87088; 93306; 95816; 96365; 99285; A6449; G0378; J0696; J1650; J1815; J7030